=== PATIENT | male | born 2000 | race Caucasian/White ===

== ENCOUNTER 2021-07-10 20:32 | Emergency (ER) | payer OTHER ==
[~2021-07-10] VITALS: Ht 165.1 cm; Wt 95.0 kg
[2021-07-10 22:39] VITALS: BP 148/75
[2021-07-10] MEDS ORDERED: IBUP-2029 MT (23:17)
== END 2021-07-10 23:48 | disposition home or self-care (01) ==
LOC: ER 20:32
DX: T16.1XXA Foreign body in right ear, initial encounter (principal); X58.XXXA Exposure to other specified factors, initial encounter; Y93.89 Activity, other specified; Y92.89 Other specified places as the place of occurrence of the external cause; Y99.8 Other external cause status
CPT/HCPCS: 99282